=== PATIENT | female | born 2000 | race Two or more races ===

== ENCOUNTER 2022-06-10 18:00 | Inpatient (IN) | payer BC, SELFPAY ==
--- NOTE | 2022-06-10 18:06 | ED_ITS ---
HPI - Psych General Chief Complaint: Psychiatric Symptoms Stated Complaint: SI with plan Time Seen by Provider: 06/10/22 19:18 Source: patient and EMS Mode of arrival: EMS Limitations: no limitations History of Present Illness HPI Narrative: This is a 21-year-old female history of bipolar disorder presenting via am bulance the emergency department for evaluation of suicidal ideation with plan x1 day. Patient tells me she is not sure what triggered her to feel this way she tells me she has bipolar disorder and this may be contributing. She reports she is on medications and taking them as prescribed. Patient denies visual, auditory and tactile hallucinations. Reports occasional marijuana use, social drinking and intermittent tobacco use. Denies homicidal ideation. No medical complaints at this time. Patient is voluntary and was not brought in on a Section 12 Related Data Home Medications Medication Instructions Recorded Confirmed lamotrigine 100 mg tablet 100 mg PO BID 06/10/22 06/10/22 (Lamictal) venlafaxine 75 mg tablet 75 mg PO DAILY 06/10/22 06/10/22 Allergies Allergy/AdvReac Type Severity Reaction Status Date / Time No Known Allergies Allergy Verified 06/10/22 18:18 Review of Systems Review of Systems: Constitutional : No Fever, No Chills ENT/Mouth : No Ear Pain, No Nasal Congestion, No sore throat Eyes: No Eye Pain, No Swelling, No Redness Cardiovascular : No Chest Pain, No SOB Respiratory : No Cough, No Sputum, No Dyspnea Gastrointestinal : No Nausea, No Vomiting, No Diarrhea, No Hematochezia, No Melena Genitourinary : No Dysuria, No Urinary Frequency, No Hematuria Musculoskeletal : No Myalgias Skin : No Skin Lesions, No rash Neuro : No Weakness, No Numbness, No Paresthesias, No Dizziness, No Headache Psych : positive Anxiety, positive Depression, positive SI, No HI All other systems reviewed and are negative Yes all other systems are reviewed and are negative [facility] Past Medical History Attestation statement: The following information was validated with the patient. Source: old records reviewed and nursing notes reviewed Physical Exam Vital Signs: Vital Signs: Last Vital Signs Temp 99.5 F 06/10/22 18:12 Pulse 101 H 06/10/22 18:12 Resp 18 06/10/22 18:12 BP 137/85 06/10/22 18:12 Pulse Ox 100 06/10/22 18:12 BMI result Body Mass Index 24.2 Vital signs stable Appearance: Alert.? Oriented X3.? No acute distress.? Head: Normocephalic, atraumatic, no step-offs or deformities Eyes: Pupils equal, round and reactive to light.? Neck: Normal inspection.? Neck supple.? CVS: Normal heart rate and rhythm.? Pulses normal.? Respiratory: No respiratory distress.? Breath sounds normal.? Abdomen: Soft and nontender.? Skin: Skin warm and dry.? Normal skin color.? Normal skin turgor.? Extremities: 5/5 strength to bilateral upper and lower extremities Neuro: Oriented X 3.? No motor deficit.? No sensory deficit. CN 2-12 intact Course Reevaluation(s) Reevaluation #1: CBC unremarkable. Chemistry with no acute electrolyte abnormalities requiring intervention. Salicylates, acetaminophen and ethanol negative. Urine is pending. COVID is negative. At this time patient medically cleared will be placed into physician observation at time observation was started patient common cooperative no acute distress. Vital signs stable. Will continue to monitor. Pending care team evaluation Time: 19:19 Medical Decision Making Medical Decision Making [facility] Narrative: 1806 21-year-old female presents from her college with suicidal ideation with plan to cut wrist. Voluntary. No medical complaints Physical exam benign This is likely bipolar disorder versus depression versus anxiety. Unlikely schizophrenia. Unlikely paranoia. I do not suspect metabolic disturbances. And plan at this time medical clearance evaluation by the behavioral health Differential Diagnosis Differential Diagnoses: The differential diagnosis associated with the presentation includes This is likely bipolar disorder versus depression versus anxiety. Unlikely schizophrenia. Unlikely paranoia. I do not suspect metabolic disturbances. Admission/Observation Consideration of admission/observation: Escalation of care including admission/observation considered Lab Data [facility] Lab Attestation statement: I reviewed the patient's lab results. 06/10/22 18:34 06/10/22 18:34 Labs: Lab Results 06/10/22 06/10/22 06/10/22 Range/Units 18:34 18:34 18:36 WBC 8.8 (4.8-10.8) X10*3/uL RBC 4.80 (4.20-5.50) X10*6/uL Hgb 13.8 (12.0-16.0) g/dl Hct 41.1 (37.0-47.0) % MCV 85.6 (80.0-98.0) fL MCH 28.8 (27.0-33.0) pg MCHC 33.6 (31.0-35.0) g/dl RDW 13.7 (11.0-16.0) % Plt Count 352 (160-400) X10*3/uL MPV 10.2 (9.4-12.3) fL Immature Gran % (Auto) 0.2 (0.0-0.4) % Neut % (Auto) 69.8 (45-73) % Lymph % (Auto) 22.0 (20-40) % [place] % (Auto) 6.9 (2-11) % Eos % (Auto) 0.8 (0-4) % Baso % (Auto) 0.3 (0-2) % Lymph # (Auto) 1.9 (1.2-4.9) X10*3/uL [place] # (Auto) 0.6 (0.1-1.2) X10*3/uL Eos # (Auto) 0.1 (0.0-0.4) X10*3/uL Baso # (Auto) 0.0 (0.0-0.2) X10*3/uL Abs Immat Gran (auto) 0.02 (0.00-0.03) X10*3/uL Absolute Neuts (auto) 6.1 (2.0-8.3) x10*3/uL Absolute Nucleated RBC 0.000 (0.0-0.012) X10*3/uL Nucleated RBC % (auto) 0.0 (0.0-0.2) /100WBC Sodium 143 (135-145) mmol/L Potassium 4.2 (3.3-5.1) mmol/L Chloride 106 (96-108) mmol/L Carbon Dioxide 29 (22-29) mmol/L Anion Gap 12 (12-20) BUN 10 (9-16) mg/dL Creatinine 0.81 (0.5-1.4) mg/dL Estim Creat Clear Calc 82.7 Estimated GFR > 60 Random Glucose 93 (60-115) mg/dL Calcium 9.5 (8.4-10.2) mg/dL Magnesium 2.1 (1.6-2.6) mg/dL Total Bilirubin 0.3 (0.0-1.0) mg/dL AST 13 (5-31) U/L ALT 10 (0-31) U/L Alkaline Phosphatase 123 H (39-117) U/L Total Protein 7.4 (6.5-8.0) g/dL Albumin 4.8 (3.5-5.0) g/dL Salicylates < 5.0 L (15-30) mg/dL Acetaminophen < 17 (<30) mcg/mL Ethyl Alcohol < 10 mg/dL COVID-19 ([facility]) Negative (Negative) COVID-19 Clin Com See Note Core Measures AMI core measures followed: Yes Measure exclusions: not indicated Critical Care Time Critical Care Time Critical Care Time: No Discharge Plan Discharge Clinical Impression: Bipolar disorder, Suicide ideation Patient Disposition: Still a Patient Prescriptions: No Action lamotrigine [Lamictal] 100 mg Tablet 100 mg PO BID venlafaxine 75 mg Tablet 75 mg PO DAILY Interventions: [place]-Suicide Risk Severity Scale Last Done: 06/10/22 18:14
[2022-06-10 18:12] VITALS: BP 116/74; BP 137/85; PULSE 101; PULSE 97; RESP 18; TEMP 37.5; O2SAT 100; O2SAT 98; BMI 24.2
[2022-06-10 18:38] LABS: MANUAL DIFF FLAG NO
--- NOTE | 2022-06-10 18:40 | PC.NURSE ---
patient tearful, alert oriented x4. changed into hospital attire. belongings secured. pleasant and cooperative with staff. able to make needs known. will CTM
[2022-06-10 18:44] LABS: Basophils Percent Auto 0.3 % (0-2); Eosinophils Absolute Auto 0.1 X10*3/uL (0.0-0.4); Eosinophils Percent Auto 0.8 % (0-4); Hematocrit 41.1 % (37.0-47.0); Hemoglobin 13.8 g/dl (12.0-16.0); Imm Gran Abs Auto 0.02 X10*3/uL (0.00-0.03); Imm Gran Pct Auto 0.2 % (0.0-0.4); Lymphocytes Absolute Auto 1.9 X10*3/uL (1.2-4.9); Mean Corpuscular HGB Conc 33.6 g/dl (31.0-35.0); Mean Corpuscular Hemoglobin 28.8 pg (27.0-33.0); Mean Corpuscular Volume 85.6 fL (80.0-98.0); Mean Platelet Volume 10.2 fL (9.4-12.3); Monocytes Absolute Auto 0.6 X10*3/uL (0.1-1.2); Monocytes Percent Auto 6.9 % (2-11); Neutrophils Absolute Auto 6.1 x10*3/uL (2.0-8.3); Neutrophils Percent Auto 69.8 % (45-73); Platelet Count 352 X10*3/uL (160-400); Red Cell Distribution Width 13.7 % (11.0-16.0); White Blood Count 8.8 X10*3/uL (4.8-10.8)
[2022-06-10 18:57] LABS: COVID-19 Test Negative (Negative); IDNOW Serial# 08D9AD1C
[2022-06-10 19:00] LABS: Alanine Aminotransferase 10 U/L (0-31); Albumin Level 4.8 g/dL (3.5-5.0); Alkaline Phosphatase 123 U/L (39-117); Anion Gap 12 (12-20); Aspartate Amino Transferase 13 U/L (5-31); Bilirubin Total 0.3 mg/dL (0.0-1.0); Blood Urea Nitrogen 10 mg/dL (9-16); Calcium 9.5 mg/dL (8.4-10.2); Carbon Dioxide 29 mmol/L (22-29); Chloride 106 mmol/L (96-108); Creatinine Clr Calc Pharmacy 82.7; Estimated Glomerular Filt Rate > 60; Ethanol < 10 mg/dL; Glucose Random 93 mg/dL (60-115); Magnesium 2.1 mg/dL (1.6-2.6); Potassium 4.2 mmol/L (3.3-5.1); Sodium 143 mmol/L (135-145); Total Protein 7.4 g/dL (6.5-8.0)
[2022-06-10 19:06] LABS: Acetaminophen LAB < 17 mcg/mL (<30); Salicylate < 5.0 mg/dL (15-30)
--- NOTE | 2022-06-10 19:09 | MHC.CARE ---
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 Pt reported to her outpatient therapist that she has been struggling with thoughts of SI and sent her therapist a goodbye email this evening. Slade reported that pt has a diagnosis of Bipolar II . Slade reported that the pt has an extensive history of SI thoughts but has not acted on them. Slade reported that there are no barriers for pt to return to [facility] and requested a phone call if student will return [facility]. Slade's phone number- [phone]
[2022-06-10 19:35] LABS: Appearance Urine Clear; Color Urine Yellow; Glucose Urine UA Negative (Negative); Leukocyte Esterase Urine Negative (Negative); Nitrite Urine Negative (Negative); Specific Gravity - Urine >= 1.030 (1.005-1.025); UMIC TRIGGER UACC YES; Urine Blood Small (1+) (Negative); Urine Ketones Negative (Negative); Urine Protein Negative (Neg-Trace)
[2022-06-10 19:44] LABS: Bacteria Urine None Seen (None Seen); Hyaline Casts Urine 0-2 /LPF (0-2); RBC Urine 0-2 /HPF (0-2); Squamous Epithelial Cell Urine 0-2 /HPF (0-2); WBC Urine 0-5 /HPF (0-5)
[2022-06-10 19:46] LABS: Amphetamine Screen Urine Not Detected (Not Detect); Barbiturates, Urine Not Detected (Not Detect); Benzodiazepines Screen Urine Not Detected (Not Detect); Cannabinoid Screen Urine Not Detected (Not Detect); Cocaine Screen Urine Not Detected (Not Detect); Fentanyl, urine Not Detected (Not Detect); Opiate Screen Urine Not Detected (Not Detect); Phencyclidine Screen Urine Not Detected (Not Detect)
[2022-06-10 19:57] LABS: UPreg QC Valid YES; Urine Pregnancy NEGATIVE (NEGATIVE)
[2022-06-11 06:03] VITALS: BP 132/87; PULSE 87; RESP 18; TEMP 37.1; O2SAT 99
--- NOTE | 2022-06-11 06:52 | PC.NURSE ---
Patient slept through the night, no distress observed/reported, no behavior concern, patient will be reassessed in the morning by care team possible discharge, med rec completed/pending provider's approval, VSS, will continue to monitor.
--- NOTE | 2022-06-11 09:17 | MHC.CARE ---
CARE Team left VM with Raina cooley [facility] at
[2022-06-11 17:00] VITALS: BP 123/78; PULSE 91; RESP 16; TEMP 36.8; O2SAT 100
--- NOTE | 2022-06-11 18:42 | PC.NURSE ---
Pt calm and cooperative throughout day. She took and shower and brushed her teeth. Pt ate 100% of all three meals. Used the phone a few times throughout the day. Has denied SI/HI today. Pt to be admitted to [address]
[2022-06-11 23:00] VITALS: BP 130/80; PULSE 73; RESP 16; TEMP 36.6; O2SAT 100
--- NOTE | 2022-06-11 23:44 | PC.ADMIT ---
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 Pt reportedly has an outpatient therapist that she has been working with and emailed her in the afternoon reporting that she is lonely, in a dark place and didn't want to live . Her therapist alerted campus police who in response sent her here for further evaluation. Pt reports after she wrote the email, she took a nap and did feel much better. I started thinking about finals and what I need to do academically before I return home . Pt reports prior to her email and presenting to the ED she had been experiencing depressive sx's such as anhedonia, excessive sleep, isolated behaviors, poor appetite, fluctuating mood and bad thoughts. Pt reports a hx of Bipolar 11 d/o . Pt states the precipitant to her email today was that over the weekend I had a manic episode she reports she got drunk, high, and started doing stupid things . Pt alludes to hooking up on campus over the weekend and now reflecting back is upset at herself which triggered suicidal thoughts. Pt reports she has also been pushing her friends away and has been struggling the last few months . Pt did not have a plan and expressed that the email was vague. Pt reports another huge stressor for her right now is that she has to return back to her country [place]home[place] June [place] and does not wish to return. Patient signs in CV. Patient cooperative with admission process. Currently denies active SI/HI thoughts with no plan. Patient reports elevated anxiety and depression.
[2022-06-12 07:13] LABS: Alanine Aminotransferase 10 U/L (0-31); Albumin Level 4.3 g/dL (3.5-5.0); Alkaline Phosphatase 112 U/L (39-117); Anion Gap 10 (12-20); Aspartate Amino Transferase 15 U/L (5-31); Bilirubin Total 0.3 mg/dL (0.0-1.0); Blood Urea Nitrogen 13 mg/dL (9-16); Calcium 9.4 mg/dL (8.4-10.2); Carbon Dioxide 29 mmol/L (22-29); Chloride 108 mmol/L (96-108); Cholesterol 185 mg/dL; Creatinine Clr Calc Pharmacy 88.1; Estimated Glomerular Filt Rate > 60; Glucose Fasting 95 mg/dL (60-99); HDL Cholesterol 62 mg/dL; LDL Cholesterol Calculated 111 mg/dl; Potassium 4.2 mmol/L (3.3-5.1); Sodium 143 mmol/L (135-145); Total Protein 6.7 g/dL (6.5-8.0); Triglycerides 64 mg/dL
[2022-06-12] MEDS: lamoTRIgine 100 MG TABLET PO ×2 (10:16→21:48)
[2022-06-12] MEDS: Venlafaxine HCL 25 MG TABLET 75 MG PO (10:16)
[2022-06-12 10:17] VITALS: BP 127/68; PULSE 95; RESP 18; TEMP 36.3; O2SAT 100
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
[2022-06-12 20:27] VITALS: BP 121/68; PULSE 109; RESP 16; TEMP 36.6; O2SAT 100
[2022-06-12] MEDS: risperiDONE 0.5 MG TABLET PO (21:48)
[2022-06-13] MEDS: Venlafaxine HCL 25 MG TABLET 75 MG PO (09:50)
[2022-06-13] MEDS: risperiDONE 0.5 MG TABLET PO ×2 (09:50→21:50)
[2022-06-13] MEDS: lamoTRIgine 100 MG TABLET PO ×2 (09:50→21:50)
[2022-06-13 09:51] VITALS: BP 110/56; PULSE 92; RESP 18; TEMP 36.7; O2SAT 98
--- NOTE | 2022-06-13 11:04 | HO.PSYCHPN ---
Subjective Subjective Date of Service: 06/13/22 Reason For Visit: SI Subjective Notes: Conditional Voluntary Interim History: The nursing staff reported the patient slept well last night, she had being in her room most of the time pleasant and cooperative. On interview the patient denies side effects with the addition of Risperdal. Denies active suicidal ideation. Mental Status Exam Mental Status Exam Patient Appearance: Well Grooomed and Appropriate Patient Orientation: Person, Place and Situation Level of Consciousness: Awake and Appropriate Patient Behavior: Guarded and Passive Mood Description: Calm Affect Description: Constricted Patient Cognition Impaired: Yes Ability to Follow Directions: Good Speech Pattern: Clear Hallucinations: None Delusions: Not Present Thought Process: Linear Thought Content: positive for Circumstantial Judgement: Fair Diagnostics Vital Signs (24Hr): Vital Signs - 24 hr 06/12/22 20:27 06/13/22 09:51 Temperature 97.9 F 98.1 F Pulse Rate 109 H 92 Respiratory Rate 16 18 Blood Pressure 121/68 110/56 L Pulse Oximetry 100 98 Oxygen Delivery Method Room Air Room Air BMI result Body Mass Index 24.2 Labs 06/10/22 18:34 06/12/22 06:46 Labs: Laboratory Results - last 48 hr 06/12/22 06:46 Sodium 143 Potassium 4.2 Chloride 108 Carbon Dioxide 29 Anion Gap 10 L BUN 13 Creatinine 0.76 Estim Creat Clear Calc 88.1 Estimated GFR > 60 Fasting Glucose 95 Calcium 9.4 Total Bilirubin 0.3 AST 15 ALT 10 Alkaline Phosphatase 112 Total Protein 6.7 Albumin 4.3 Triglycerides 64 Cholesterol 185 LDL Cholesterol, Calc 111 HDL Cholesterol 62 Medications Medications Current Medications Acetaminophen (Acetaminophen 325 Mg Tablet) 650 mg PO Q6H PRN PRN Reason: Headache/Pain Mild Scale (1-3) Al Hydroxide/Mg Hydroxide (Magnesium Hydrox/Alum Hydrox 30 Ml Oral.Susp) 30 ml PO Q6H PRN PRN Reason: Heartburn/Nausea Hydroxyzine HCl (Hydroxyzine Hcl 25 Mg Tablet) 25 mg PO Q6H PRN PRN Reason: Anxiety Lamotrigine (Lamotrigine 100 Mg Tablet) 100 mg PO BID [facility] Last Admin: 06/13/22 09:50 Dose: 100 mg Magnesium Hydroxide (Milk Of Magnesia 30 Ml Oral.Susp) 30 ml PO DAILY PRN PRN Reason: Constipation Risperidone (Risperidone 0.5 Mg Tablet) 0.5 mg PO BID [facility] Last Admin: 06/13/22 09:50 Dose: 0.5 mg Trazodone HCl (Trazodone Hcl 50 Mg Tablet) 50 mg PO BEDTIME MRX1 PRN PRN Reason: Insomnia Venlafaxine HCl (Venlafaxine Hcl 25 Mg Tablet) 75 mg PO DAILY [facility] Last Admin: 06/13/22 09:50 Dose: 75 mg Allergies Allergies Allergy/AdvReac Type Severity Reaction Status Date / Time No Known Allergies Allergy Verified 06/10/22 18:18 Assessment & Plan Assessment & Plan (1) Bipolar disorder: Status: Acute Code(s): F31.9 - Bipolar disorder, unspecified (2) Suicide ideation: Status: Acute Code(s): R45.851 - Suicidal ideations Plan The patient is a young adult any and female with a prior history of bipolar disorder admitted for exacerbation of depression with suicidal ideation. She recently had an IP manic episode 2 weeks ago. Plan 1. Psychoeducation into her condition was provided. 2. Continue with Lamictal and Effexor as prescribed. 3. Start Risperdal 0.5 p.o. b.i.d. to target mood lability on June 12. 4. Continue with medical workout. 5. Reassessment with results. Reason for continued inpatient stay Substantial Risk for: inability to function, rapid decompensation and med/psych decompensation Time Spent With Patient Time: Total time managing care of this patient today __20__ minutes.
[2022-06-13 21:51] VITALS: BP 117/68; PULSE 96; RESP 16; TEMP 36.5; O2SAT 100
[2022-06-14] MEDS: risperiDONE 0.5 MG TABLET PO ×2 (08:59→21:24)
[2022-06-14] MEDS: lamoTRIgine 100 MG TABLET PO ×2 (08:59→21:24)
[2022-06-14] MEDS: Venlafaxine HCL 25 MG TABLET 75 MG PO (08:59)
--- NOTE | 2022-06-14 16:53 | HO.PSYCHPN ---
Subjective Subjective Date of Service: 06/14/22 Reason For Visit: SI Interim History: planning to discharge tomorrow. feeling better. taking risperidone 0.5 BID and no side effects. denies safety concerns. per staff, 3-day up 06/16. sleeping better since admission. had been stressed [employer]. feeling less overwhelmed. Mental Status Exam Mental Status Exam Narrative: adequately dressed and groomed, cooperative, no PMA/PMR. speech soft, nml rate, amount, loudness, tone, latency. thoughts linear and logical without evidence of paranoia or delusions. affect full range, normo-intense, non-labile. mood better. denies SI/SIBI/HI/AVH. Diagnostics Vital Signs (24Hr): Vital Signs - 24 hr 06/13/22 21:51 Temperature 97.7 F Pulse Rate 96 Respiratory Rate 16 Blood Pressure 117/68 Pulse Oximetry 100 Oxygen Delivery Method Room Air BMI result Body Mass Index 24.2 Labs 06/10/22 18:34 06/12/22 06:46 Medications Medications Current Medications Acetaminophen (Acetaminophen 325 Mg Tablet) 650 mg PO Q6H PRN PRN Reason: Headache/Pain Mild Scale (1-3) Al Hydroxide/Mg Hydroxide (Magnesium Hydrox/Alum Hydrox 30 Ml Oral.Susp) 30 ml PO Q6H PRN PRN Reason: Heartburn/Nausea Hydroxyzine HCl (Hydroxyzine Hcl 25 Mg Tablet) 25 mg PO Q6H PRN PRN Reason: Anxiety Lamotrigine (Lamotrigine 100 Mg Tablet) 100 mg PO BID [facility] Last Admin: 06/14/22 08:59 Dose: 100 mg Magnesium Hydroxide (Milk Of Magnesia 30 Ml Oral.Susp) 30 ml PO DAILY PRN PRN Reason: Constipation Risperidone (Risperidone 0.5 Mg Tablet) 0.5 mg PO BID [facility] Last Admin: 06/14/22 08:59 Dose: 0.5 mg Trazodone HCl (Trazodone Hcl 50 Mg Tablet) 50 mg PO BEDTIME MRX1 PRN PRN Reason: Insomnia Venlafaxine HCl (Venlafaxine Hcl 25 Mg Tablet) 75 mg PO DAILY [facility] Last Admin: 06/14/22 08:59 Dose: 75 mg Allergies Allergies Allergy/AdvReac Type Severity Reaction Status Date / Time No Known Allergies Allergy Verified 06/10/22 18:18 Assessment & Plan Assessment & Plan (1) Bipolar disorder: Status: Acute Code(s): F31.9 - Bipolar disorder, unspecified (2) Suicide ideation: Status: Acute Code(s): R45.851 - Suicidal ideations Plan The patient is a young adult any and female with a prior history of bipolar disorder admitted for exacerbation of depression with suicidal ideation. She recently had an IP manic episode 2 weeks ago. Plan 1. Psychoeducation into her condition was provided. 2. Continue with Lamictal and Effexor as prescribed. 3. Start Risperdal 0.5 p.o. b.i.d. to target mood lability on June 12. 4. Continue with medical workout. 5. Reassessment with results. 06/14: safe, improved. requesting DC tomorrow. planning for 11:30. continue current mgmt until then. Reason for continued inpatient stay Substantial Risk for: inability to function and rapid decompensation Time Spent With Patient Time: Total time managing care of this patient today __25__ minutes.
[2022-06-14 21:22] VITALS: BP 110/62; PULSE 99; RESP 16; TEMP 36.4; O2SAT 100
[2022-06-14] MEDS: traZODone HCL 50 MG TABLET PO (23:06)
[2022-06-15 09:20] VITALS: BP 110/71; PULSE 103; RESP 16; TEMP 36.7; O2SAT 100
[2022-06-15] MEDS: lamoTRIgine 100 MG TABLET PO (09:23)
[2022-06-15] MEDS: Venlafaxine HCL 25 MG TABLET 75 MG PO (09:23)
[2022-06-15] MEDS: risperiDONE 0.5 MG TABLET PO (09:23)
--- NOTE | 2022-06-15 09:34 | PC.NURSE ---
Brittany is alert, fully oriented, pleasant and cooperative with discharge process. She denies ideation, plan or intent to harm self or others. She states that although she does not want to go to [place] to be with her family for the summer she will be safe doing so. She demonstrates knowledge of how to access care in a crisis. She verbalizes understanding of discharge medications and appointments. She denies physical complaint.
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
== END 2022-06-15 11:25 | disposition home or self-care (01) | DRG 753 ==
LOC: HO.ED 06-11 08:12 → HO.PADLT16 06-11 22:30
PROVIDERS: Physician Assistant; Admitting Provider Psychiatry & Neurology Psychiatry; Emergency Provider Emergency Medicine Emergency Medical Services; Visit Provider Psychiatry & Neurology Psychiatry
DX: F31.9 Bipolar disorder, unspecified (principal); R45.851 Suicidal ideations; Z20.822 Contact with and (suspected) exposure to COVID-19; Z79.899 Other long term (current) drug therapy
CPT/HCPCS: 36415; 80053; 80061; 80143; 80179; 80307; 81001; 81025; 82077; 83735; 85025; 87635; 99285; S9485